=== PATIENT | male | born 1985 | race Caucasian/White ===

== ENCOUNTER 2023-07-31 14:08 | Emergency (ER) | payer SELFPAY ==
[2023-07-31 15:08] LABS: Bacteria/HPF None Seen HPF (None Seen); Bilirubin Negative (Negative); Blood, Urine Negative (Negative); CAUTI Indications for Culture Pelvic or flank pain; Clarity Clear (Clear); Glucose, Urine (Dipstick) Normal (Negative); Ketone, Urine Negative (Negative); Leukocyte Negative Leu/uL (Negative); Nitrite Negative (Negative); Protein, Urine (Dipstick) Negative (Neg-Trace); RBC/HPF 0-3 HPF (0-3); Specific Gravity, Urine 1.016 (1.002-1.036); Squamous Epithelial None Seen HPF (0-3); Urobilinogen Normal mg/dL (Less than 2); WBC/HPF 0-3 HPF (0-3); pH, Urine 7.5 (5.0-9.0)
[2023-07-31 15:12] LABS: Urine Culture Reflex No No
[2023-07-31 15:14] LABS: #Basophils 0.1 thou/uL (0.0-0.2); #Eosinphils 0.1 thou/uL (0.0-0.7); #Monocytes 0.7 thou/uL (0.11-0.59); #Neutrophils 6.7 thou/uL (1.40-6.50); %Basophils 0.8 % (0.0-1.0); %Eosinophils 0.9 % (0.0-10.0); %Lymphocytes 19.1 % (21.0-51.0); %Neutrophils 71.9 % (42.0-75.0); Hematocrit 48.8 % (42.0-52.0); Hemoglobin 16.8 g/dL (14.0-18.0); Mean Corpuscular HGB CONC 34.4 g/dL (32.0-36.0); Mean Corpuscular Hemoglobin 29.3 pg (27.0-31.0); Mean Platelet Volume 10.2 fL (7.4-10.4); Platelet Count 233 10x3/uL (130-400); RBC Distribution Width 12.6 % (11.5-14.5); Red Blood Cell (RBC) Count 5.74 mill/uL (4.70-6.10); White Blood Cell (WBC) Count 9.3 10x3/uL (4.8-10.8)
[2023-07-31 15:47] LABS: ALT (SGPT) 14 U/L (8-55); AST (SGOT) 19 U/L (5-34); Albumin 4.8 g/dL (3.5-5.0); Alkaline Phosphatase 64 U/L (40-110); Anion Gap 14 mmol/L (10-20); BUN (Urea Nitrogen) 9 mg/dL (8.9-20.6); Calc. Creatinine Clearance 0 mL/min (70-130); Carbon Dioxide 22 mmol/L (22-29); Chloride 106 mmol/L (98-107); Estimated GFR 116; Globulin 2.5 g/dL (2.4-3.5); Glucose 88 mg/dL (70-105); Lipase 17 U/L (8-78); Potassium 4.2 mmol/L (3.5-5.1); Protein, Total 7.3 g/dL (6.0-8.3); Sodium 138 mmol/L (136-145)
== END 2023-07-31 16:32 | disposition home or self-care (01) ==
LOC: ERS 14:08
DX: R10.32 Left lower quadrant pain (principal)
CPT/HCPCS: 80053; 81001; 83690; 85025; 99284

== ENCOUNTER 2023-08-07 08:20 | Outpatient (CLI) | payer OTHER | END 2023-08-07 08:21 | disposition home or self-care (01) | LOC: BICULT 08:20 | PROVIDERS: ATTEND Registered Nurse | DX: R10.32 Left lower quadrant pain (principal) | CPT/HCPCS: 76705 ==

== ENCOUNTER 2023-08-15 08:34 | Outpatient (CLI) | payer OTHER ==
[2023-08-15] MEDS ORDERED: Iopamidol 370 76% 100 ML VIAL ONE (11:49)
== END 2023-08-15 08:35 | disposition home or self-care (01) ==
LOC: BICCT 08:34
PROVIDERS: ATTEND Registered Nurse
DX: R10.32 Left lower quadrant pain (principal)
CPT/HCPCS: 74177; Q9967